=== PATIENT | female | born 1960 | race Caucasian/White ===

== ENCOUNTER 2016-02-14 09:34 | Outpatient (CLI) ==
--- NOTE | 2016-02-14 10:32 | MAMMO ---
EXAM: Bilateral digital diagnostic mammogram History: Left breast palpable abnormality. Comparison: Bilateral mammogram 02/22/2015 Findings: MLO and CC views of bilateral breasts demonstrate predominately fatty replaced breast par enchyma. There are no dominant masses, no suspicious microcalcifications and no architectural disto rtions Impression: Although no mammographic abnormalities are identified, recommend left breast ultrasound to evaluate the palpable event. BIRADS 0
--- NOTE | 2016-02-14 10:47 | US ---
EXAM: Left breast ultrasound. History: Left breast palpable abnormality. Comparison: Bilateral mammogram 02/14/2016 Technique: Multiple sonographic images through the left breast were obtained. Color duplex Doppler was used to interrogate vascular flow. Findings: Within the left breast at 3 o'clock near the areola in the skin there is a 0.6 cm x 0.2 cm x 0.5 cm cystic lesion which most likely represents a sebaceous cyst. Impression: Left breast sebaceous cyst is benign. There is no sonographic evidence of malignancy. Return to routine screening mammography. BIRADS 2
== END 2016-02-14 09:35 | disposition home or self-care (01) ==
LOC: RAD 09:34
PROVIDERS: ATTEND Internal Medicine
DX: N63 Unspecified lump in breast (principal)